=== PATIENT | male | born 1990 | race Caucasian/White ===

== ENCOUNTER 2016-08-31 14:15 | Emergency (ER) | payer OTHER ==
[~2016-08-31] VITALS: Ht 193 cm; Wt 104.5 kg
[2016-08-31 14:18] VITALS: BP 128/92; PULSE 96; TEMP 99.1
[2016-08-31] MEDS ORDERED: LEXAPRO20 MG PO (14:21)
[2016-08-31 15:24] LABS: INFLUENZA B NEGATIVE
== END 2016-08-31 15:51 | disposition home or self-care (01) ==
LOC: COL.ER 14:15
PROVIDERS: Nurse Practitioner
DX: R50.9 Fever, unspecified (principal)